=== PATIENT | male | born 1995 | race Caucasian/White ===

== ENCOUNTER 2018-04-10 19:51 | Emergency (ER) | payer OTHER ==
[2018-04-10 22:48] VITALS: BP 136/92
== END 2018-04-10 22:48 | disposition home or self-care (01) ==
LOC: ED 19:51
DX: M25.522 Pain in left elbow (principal); M79.632 Pain in left forearm; W18.39XA Other fall on same level, initial encounter; Y93.51 Activity, roller skating (inline) and skateboarding; Y92.89 Other specified places as the place of occurrence of the external cause; Y99.8 Other external cause status
CPT/HCPCS: J1885

== ENCOUNTER 2020-10-22 00:05 | Emergency (ER) | payer OTHER ==
[~2020-10-22] VITALS: Ht 170.2 cm; Wt 73.0 kg
[2020-10-22 00:14] VITALS: BP 117/73; Ht 170.2 cm; Wt 73.0 kg
[2020-10-22] MEDS ORDERED: IBU600 M2 PO (01:21)
[2020-10-22] MEDS ORDERED: ULTRAM50 MG PO (01:21)
== END 2020-10-22 01:47 | disposition left against medical advice (07) ==
LOC: ED 00:05
DX: S43.102A Unspecified dislocation of left acromioclavicular joint, initial encounter (principal); W18.30XA Fall on same level, unspecified, initial encounter; Y93.89 Activity, other specified; Y92.89 Other specified places as the place of occurrence of the external cause; Y99.8 Other external cause status

== ENCOUNTER 2020-11-16 21:19 | Emergency (ER) | payer OTHER ==
[~2020-11-16] VITALS: Ht 172.7 cm; Wt 70.3 kg
[~2020-11-16 21:19] MED LIST: IBU600 M2 PO; ULTRAM50 MG PO
[2020-11-16 21:22] VITALS: Ht 172.7 cm; Wt 70.3 kg
[2020-11-17 00:15] VITALS: BP 119/78
== END 2020-11-17 00:15 | disposition home or self-care (01) ==
LOC: ED 21:19
DX: S29.9XXA Unspecified injury of thorax, initial encounter (principal); M79.641 Pain in right hand; Z98.890 Other specified postprocedural states; Y04.8XXA Assault by other bodily force, initial encounter; Y92.89 Other specified places as the place of occurrence of the external cause; Y93.89 Activity, other specified; Y99.8 Other external cause status